=== PATIENT | female | born 1960 | race Caucasian/White ===

== ENCOUNTER → 2018-11-06 18:11 | Outpatient (CLI) | payer BC, SELFPAY ==
[2018-11-06 19:16] LABS: Basophils # 0.1 K/mm3 (0-0.2); Basophils % 0.5 % (0.1-2.0); Eosinophils # 0.2 K/mm3 (0.0-0.4); Eosinophils % 1.9 % (0.1-12.0); Hematocrit 44.6 % (37.0-47.0); Hemoglobin 14.1 g/dL (12.2-16.2); Lymphocytes # 2.3 K/mm3 (0.7-4.5); Lymphocytes % 18.2 % (10-50); Mean Corpuscular HGB Conc 31.8 g/dL (31.8-35.4); Mean Corpuscular Hemoglobin 28.4 pg (27.0-31.2); Mean Corpuscular Volume 89.4 fl (81-99); Mean Platelet Volume 9.5 fl (7.4-10.4); Monocytes # 0.7 K/mm3 (0.1-1.0); Monocytes % 5.4 % (1.7-9.3); Neutrophils # 9.4 K/mm3 (1.8-7.8); Neutrophils % 73.9 % (37.0-80.0); Platelet Count 312 K/mm3 (142-424); Red Blood Count 4.98 M/mm3 (4.20-5.40); White Blood Count 12.7 K/mm3 (4.8-10.8)
[2018-11-06 19:23] LABS: Alanine Aminotransferase 37 U/L (12-78); Albumin Level 3.9 gm/dL (3.4-5.0); Albumin/Globulin Ratio 1.1 (1.1-1.8); Alkaline Phosphatase 109 U/L (46-116); Anion Gap 15.3 mEq/L (5-15); Aspartate Amino Transferase 23 U/L (15-37); Bilirubin,Total 0.3 mg/dL (0.2-1.0); Blood Urea Nitrogen 22 mg/dL (7-18); Calcium 9.8 mg/dL (8.5-10.1); Carbon Dioxide 28 mmol/L (21.0-32.0); Chloride 102 mmol/L (98-107); Chol/HDL Ratio 4.3 (1-3.5); Cholesterol 200 mg/dL (140-200); Creatinine,Serum 0.87 mg/dL (0.55-1.02); Estimated Glomerular Filt Rate 67 ml/min (>60); GFR (African American) 81 ML/MIN (>60); Globulin 3.7 gm/dl (1.3-3.2); Glucose 141 mg/dL (74-106); HDL Cholesterol 47 mg/dL (29-89); LDL Cholesterol 101 mg/dL (0-130); Potassium 4.3 mmoL/L (3.5-5.1); Sodium 141 mmol/L (136-145); T4 (Thyroxine) 7.4 ug/dl (4.7-13.3); Thyroid Stimulating Hormone 2.89 uIU/ml (0.358-3.740); Total Protein,Serum 7.6 gm/dL (6.4-8.2); Triglycerides 262 mg/dL (30-200); VLDL Cholesterol 52 mg/dL (0-40)
[2018-11-06 19:26] LABS: Hemoglobin A1C 6.7 % (0.0-7.0)
[2018-11-08 09:16] LABS: Creatinine, Urine 42.4 mg/dL (Not Estab.); Microalbumin, Urine 4.9 ug/mL (Not Estab.)
[2018-11-10 08:19] LABS: Vitamin D 25 Hydroxy 26.7 ng/mL (30.0-100.0)
== END ==
PROVIDERS: Visit Provider Nurse Practitioner Family
DX: E11.9 Type 2 diabetes mellitus without complications (principal); Z79.84 Long term (current) use of oral hypoglycemic drugs
CPT/HCPCS: 80053; 80061; 82043; 82570; 82652; 83036; 84436; 84443; 85025

== ENCOUNTER → 2018-12-19 13:24 | Outpatient (CLI) | payer BC, SELFPAY ==
--- NOTE | 2018-12-19 13:29 | MR_ITS ---
MR lumbar spine wo con, MR 3-d myelogram/MRCP HISTORY: LBP with LT leg pain, numbness, and tingling. X2-3 months. No trauma. No prior. ITS.REASON: back pain ORDERING PHYSICIAN: Aj Plasencia MD PATIENT AGE: 58 years Comparison: None TECHNIQUE: Standard multiplanar multiecho sequences are performed without contrast. 3-D MIP and myelographic images are also rendered and reviewed FINDINGS: There is normal alignment. The spinal cord ends at the T12-L1 level. T12-L1 is unremarkable. L1-L2: Unremarkable. L2-L3: Unremarkable. L3-L4: Unremarkable. L4-5: Unremarkable. L5-S1: There is 5.5 mm anterolisthesis of L5 on S1 with bulging disc which is slightly eccentric toward the left with left-sided facet and ligamentum flavum hypertrophy with mild left lateral recess and moderate left-sided foraminal narrowing. There is mild right-sided foraminal narrowing. Type I endplate changes are present at this level. IMPRESSION: There is 5.5 mm anterolisthesis of L5 on S1 with bulging disc which is slightly eccentric toward the left with left-sided facet and ligamentum flavum hypertrophy with mild left lateral recess and moderate left-sided foraminal narrowing. There is mild right-sided foraminal narrowing. Type I endplate changes are present at this level. No extruded herniated disc or canal stenosis
== END ==
PROVIDERS: PCP Emergency Medicine; Visit Provider Emergency Medicine
DX: M54.9 Dorsalgia, unspecified (principal)
CPT/HCPCS: 72148; 76376

== ENCOUNTER → 2018-12-30 09:13 | Outpatient (CLI) | payer BC, SELFPAY ==
--- NOTE | 2018-12-30 09:16 | MM_ITS ---
MM Dig screening mamm BI w/CAD CAD Screening COMPARISON: Outside digital mammograms with CAD 11/19/2014 and 08/21/2012 INDICATION: There is no personal or family history of breast cancer TECHNIQUE: Standard CC and MLO images were obtained. R2 CAD reviewed. FINDINGS: The breasts are composed primarily of fat with minimal scattered fiber glandular densities in each breast. There are few benign appearing microcalcifications right breast. There is no suspicious lesion and no suspicious microcalcifications. IMPRESSION: Fibrofatty parenchyma with no suspicious lesion seen BI-RADS Category: 2 Benign Finding(s) RECOMMENDED FOLLOW-UP: 1YR - 1 YEAR FOLLOW-UP (A letter has been sent to the patient regarding results of the study.)
== END ==
PROVIDERS: PCP Emergency Medicine; Visit Provider Emergency Medicine
DX: Z12.31 Encounter for screening mammogram for malignant neoplasm of breast (principal)
CPT/HCPCS: 77067

== ENCOUNTER → 2019-01-05 13:22 | Outpatient (POV) | payer BC, SELFPAY ==
[2019-01-05 13:31] VITALS: BP 106/75; PULSE 83; RESP 18; O2SAT 99
--- NOTE | 2019-01-05 13:47 | HMH.PMCON ---
Assessment and Plan (1) Facet hypertrophy of lumbar region Current visit: No Status: Chronic Category: Medical Code(s): M47.816 - Spondylosis without myelopathy or radiculopathy, lumbar region (2) Bulging lumbar disc Current visit: No Status: Chronic Category: Medical Code(s): M51.26 - Other intervertebral disc displacement, lumbar region (3) Anterolisthesis Current visit: No Status: Chronic Category: Medical Code(s): M43.10 - Spondylolisthesis, site unspecified - Assessment and plan all Dx Assessment and Plan for all problems:: We will set the patient up for an L5-S1 lumbar epidural steroid injection. Patient is going to also begin physical therapy. I will see the patient back after her injection and reassess her symptoms at that time. Patient has been instructed to call the office if she has any issues prior to her next appointment. Dr. Patel has reviewed this note and agrees with this plan of care. This note was dictated using voice recognition software and may contain errors or omissions HPI - Data of Consult Consult date: 01/05/19 Requesting Physician: Mercedes Long APRN Primary Care Provider: Aj Plasencia MD - Consult Narrative Reason for consult: Back pain, left leg pain History of present illness: Ms. Cm is a 58 year old female who presents today for consultation in regards to her low back and left leg pain. Patient has recent MRI showing unremarkable results except at the L5-S1 level. Patient has bulging disc with left-sided facet and ligamentum flavum hypertrophy and left lateral recess and moderate left-sided foraminal narrowing rating to the report. Patient is trying to continue to work. Patient has an appointment with Dr. Donaldson next Saturday. Patient is currently on anti-inflammatories and gabapentin. Patient has not been to physical therapy. She rates her pain today a 5 out of 10. She is notably uncomfortable. CC: Mercedes Long APRN [facility] History I have reviewed the patient's past medical history: Yes Medical History: Reports:: Depression, Diabetes Mellitus Type 2, Hyperlipidemia, Hypertension *Have you ever received a pneumonia vaccine?: No *Have you received a flu vaccine this season?: Yes Other Medical History: Reports: Hypothyroidism Other Surgeries: Yes: BSO, Cholecystectomy, Tubal Ligation Amputation: No Fractures: No - *Social History Smoking Status: Never smoker Alcohol Intake: never Substance Use Type: denies use *Occupational Status:: employed Housing: house *Travel in the last 8 weeks: None - Psychiatric History Expresses thoughts of harming self/others: None Suicide Plan Description: No Plan Pschychiatric History:: Reports:: Depression Family Hx:: Stroke, Heart Attack, Diabetes Review of Systems - Review of Systems ROS General: no recent weight change, no fever, no sleep disturbances Respiratory: no cough, no shortness of air, no recurring pulmonary infections Cardiovascular/Peripheral Vascular: No chest pain, No palpitations, no edema, no shortness of breath. Gastrointestinal: no incontinence, normal bowel movements reported Genitourinary: no incontinence Musculoskeletal: Back pain, left leg pain Psychiatric: normal mood/ affect Neurological: [denies weakness in extremities], [denies balance issues] Meds Home Medications Medication Instructions Recorded Confirmed Type aspirin 81 mg tablet,delayed 81 mg PO DAILY 10/01/18 12/24/18 History release meloxicam 15 mg tablet 15 mg PO DAILY 10/01/18 12/24/18 History polyethylene glycol 3350 17 gram 17 g PO DAILY 10/01/18 12/24/18 History oral powder packet rosuvastatin 20 mg tablet 20 mg PO DAILY 10/01/18 12/24/18 History sertraline 50 mg tablet 50 mg PO DAILY 10/01/18 12/24/18 History sitagliptin 100 mg tablet 100 mg PO DAILY 10/01/18 12/24/18 History tolterodine 2 mg tablet 2 mg PO BID #180 tab 12/02/18 12/24/18 Rx glipizide 10 mg tablet 20 mg PO BID #360 tab
--- NOTE | 2019-01-05 13:51 | P.CONS_ITS ---
Assessment and Plan (1) Facet hypertrophy of lumbar region Current visit: No Status: Chronic Category: Medical Code(s): M47.816 - Spondylosis without myelopathy or radiculopathy, lumbar region (2) Bulging lumbar disc Current visit: No Status: Chronic Category: Medical Code(s): M51.26 - Other intervertebral disc displacement, lumbar region (3) Anterolisthesis Current visit: No Status: Chronic Category: Medical Code(s): M43.10 - Spondylolisthesis, site unspecified - Assessment and plan all Dx Assessment and Plan for all problems:: We will set the patient up for an L5-S1 lumbar epidural steroid injection. Patient is going to also begin physical therapy. I will see the patient back after her injection and reassess her symptoms at that time. Patient has been instructed to call the office if she has any issues prior to her next appointment. Dr. Patel has reviewed this note and agrees with this plan of care. This note was dictated using voice recognition software and may contain errors or omissions HPI - Data of Consult Consult date: 01/05/19 Requesting Physician: Mercedes Long APRN Primary Care Provider: Aj Plasencia MD - Consult Narrative Reason for consult: Back pain, left leg pain History of present illness: Ms. Cm is a 58 year old female who presents today for consultation in regards to her low back and left leg pain. Patient has recent MRI showing unremarkable results except at the L5-S1 level. Patient has bulging disc with left-sided facet and ligamentum flavum hypertrophy and left lateral recess and moderate left-sided foraminal narrowing rating to the report. Patient is trying to continue to work. Patient has an appointment with Dr. Donaldson next Saturday. Patient is currently on anti-inflammatories and gabapentin. Patient has not been to physical therapy. She rates her pain today a 5 out of 10. She is notably uncomfortable. CC: Mercedes Long APRN [facility] History I have reviewed the patient's past medical history: Yes Medical History: Reports:: Depression, Diabetes Mellitus Type 2, Hyperlipidemia, Hypertension *Have you ever received a pneumonia vaccine?: No *Have you received a flu vaccine this season?: Yes Other Medical History: Reports: Hypothyroidism Other Surgeries: Yes: BSO, Cholecystectomy, Tubal Ligation Amputation: No Fractures: No - *Social History Smoking Status: Never smoker Alcohol Intake: never Substance Use Type: denies use *Occupational Status:: employed Housing: house *Travel in the last 8 weeks: None - Psychiatric History Expresses thoughts of harming self/others: None Suicide Plan Description: No Plan Pschychiatric History:: Reports:: Depression Family Hx:: Stroke, Heart Attack, Diabetes Review of Systems - Review of Systems ROS General: no recent weight change, no fever, no sleep disturbances Respiratory: no cough, no shortness of air, no recurring pulmonary infections Cardiovascular/Peripheral Vascular: No chest pain, No palpitations, no edema, no shortness of breath. Gastrointestinal: no incontinence, normal bowel movements reported Genitourinary: no incontinence Musculoskeletal: Back pain, left leg pain Psychiatric: normal mood/ affect Neurological: [denies weakness in extremities], [denies balance issues] Meds Home Medications Medication Instructions Recorded Confirmed Type aspirin 81 mg tablet,delayed 81 mg PO DAILY 10/01/18 12/24/18 History release
== END ==
PROVIDERS: PCP Emergency Medicine; Visit Provider Clinical Nurse Specialist Family Health
DX: M47.816 Spondylosis without myelopathy or radiculopathy, lumbar region (principal); M51.26 Other intervertebral disc displacement, lumbar region; M43.10 Spondylolisthesis, site unspecified
CPT/HCPCS: 99202

== ENCOUNTER 2019-01-09 11:10 | Day surgery (SDC) | payer BC, SELFPAY ==
[2019-01-09 12:06] VITALS: BP 156/79; PULSE 77; RESP 18; O2SAT 97; BMI 39.0
[2019-01-09 12:31] VITALS: BP 146/98; PULSE 78; RESP 18
[2019-01-09 12:32] VITALS: BP 145/87; PULSE 79; RESP 18; O2SAT 98
[2019-01-09 12:35] VITALS: BP 174/78; PULSE 74; RESP 18; O2SAT 97
--- NOTE | 2019-01-09 12:36 | HMH.PMPROC ---
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 Donaldosn this Saturday. She has increasing pain in her back radiating down her left leg. We will do a lumbar epidural steroid injection to see if this will help with her pain symptoms. Procedure Details:: Lumbar epidural steroid injection under fluoroscopy Informed consent was obtained and the risk and benefits of the procedure was explained to the patient. The patient was taken to the procedure room. The patient was placed prone on the procedure table. The patient was prepped and draped in sterile fashion. C-arm fluoroscopy was used to view the lumbar spine. Skin and subcutaneous tissues were anesthetized using lidocaine. I placed an 18-gauge epidural needle and advanced into the L4-L5 interspace using fluoroscopic guidance and [id number] to air. After confirmation of needle placement in the epidural space with dye I injected 2 mL of lidocaine 1.5% with Depo-Medrol 80 mg. Patient tolerated the procedure well with no complications. Plan and Disposition:: We will follow-up with her in 2 weeks. Will reevaluate her symptoms at that time and follow-up on Dr. Donaldson's recommendation.
== END 2019-01-09 12:35 | disposition home or self-care (01) ==
LOC: SC.PAINP 11:14
PROVIDERS: PCP Emergency Medicine; Visit Provider Anesthesiology
DX: M51.16 Intervertebral disc disorders with radiculopathy, lumbar region (principal)
CPT/HCPCS: 62323; J1040; Q9966

== ENCOUNTER 2019-02-04 16:00 | Outpatient (RCR) | payer BC, SELFPAY | END 2019-02-04 16:05 | disposition home or self-care (01) | LOC: PT 16:00 | PROVIDERS: Visit Provider Clinical Nurse Specialist Family Health | DX: M54.5 Low back pain (principal) | CPT/HCPCS: 97010; 97014; 97110; 97163; G0283 ==

== ENCOUNTER → 2019-02-09 13:37 | Outpatient (POV) | payer BC, SELFPAY ==
[2019-02-09 13:52] VITALS: BP 124/55; PULSE 100; RESP 18; O2SAT 98; BMI 40.1
--- NOTE | 2019-02-09 13:56 | P.CONS_ITS ---
[facility] Pain Management SOAP Note Subjective:: Patient is a pleasant 58-year-old white female who we are treating for low back pain. She is following up after her first lumbar epidural steroid injection. She denies any pain today. She is 100% relief of her symptomology. She is doing well and much more functional. She like to follow-up on an as-needed basis. ROS General: no recent weight change, no fever, no sleep disturbances Respiratory: no cough, no shortness of air, no recurring pulmonary infections Cardiovascular/Peripheral Vascular: No chest pain, No palpitations, no edema, no shortness of breath. Gastrointestinal: no incontinence, normal bowel movements reported Genitourinary: no incontinence Musculoskeletal: Back pain, leg pain Psychiatric: normal mood/ affect Neurological: [denies weakness in extremities], [denies balance issues] Objective:: Physical Exam General: Alert and oriented x3, no acute distress, pleasant and cooperative, [on room air] Lungs: Resps E/U, Symmetrical chest expansion, Eyes: PERRL Musculoskeletal: Flexion and extension of lumbar spine somewhat guarded se condary to pain, deep tendon reflexes normal, strength in upper and lower extremities [5/5], slightly antalgic gait noted Neurological: speech clear, director of enrollment equal, no gross sensory deficits Assessment:: Degenerative disc disease lumbar spine with lumbar radiculopathy symptoms with Plan:: We will see the patient back on an as needed basis. Patient has been instructed to call the office if she has any issues. Overall patient is doing well. Dr. Patel has reviewed this note and agrees with this plan of care. This note was dictated using voice recognition software and may contain errors or omissions
== END ==
PROVIDERS: PCP Emergency Medicine; Visit Provider Clinical Nurse Specialist Family Health
DX: M51.16 Intervertebral disc disorders with radiculopathy, lumbar region (principal)
CPT/HCPCS: 99212

== ENCOUNTER → 2019-05-25 11:10 | Outpatient (POV) | payer BC, SELFPAY ==
[2019-05-25 11:30] VITALS: BP 183/75; PULSE 76; RESP 18; O2SAT 94; BMI 39.9
--- NOTE | 2019-05-26 08:52 | P.CONS_ITS ---
[facility] Pain Management SOAP Note Subjective:: Patient is a very pleasant 58-year-old white female who we are treating for low back pain. Patient had an epidural injection in which she got 100% relief of her symptomology for over 3 months. Patient's pain is beginning to return. She rates it a 5 out of 10. She would like to move forward with a repeat L4-L5 lumbar epidural steroid injection. She does have radiation into her legs. ROS General: no recent weight change, no fever, no sleep disturbances Respiratory: no cough, no shortness of air, no recurring pulmonary infections Cardiovascular/Peripheral Vascular: No chest pain, No palpitations, no edema, no shortness of breath. Gastrointestinal: no incontinence, normal bowel movements reported Genitourinary: no incontinence Musculoskeletal: Back pain, leg pain Psychiatric: normal mood/ affect Neurological: [denies weakness in extremities], [denies balance issues] Objective:: Physical Exam General: Alert and oriented x3, no acute distress, pleasant and cooperative, [on room air] Lungs: Resps E/U, Symmetrical chest expansion, Eyes: PERRL Musculoskeletal: Flexion and extension of bar spine somewhat guarded secondary to pain, deep tendon reflexes normal, strength in upper and lower extremities [5/5], lightly antalgic gait noted, positive straight leg raise test bilaterally at 30 degrees Neurological: speech clear, geneticist equal, no gross sensory deficits Assessment:: Degenerative disc disease lumbar spine with lumbar radiculopathy Plan:: Given the efficacy of the injections in the past we will move forward with an L4-L5 lumbar epidural steroid injection. Patient's been instructed to call the office if she has any issues prior to her next appointment. She is not on any anticoagulation therapy she has had pain for over 6 months. She has been continuing her home stretching program. Dr. Patel has reviewed this note and agrees with this plan of care. This note was dictated using voice recognition software and may contain errors or omissions [facility] History I have reviewed the patient's past medical history: Yes Medical History: Reports:: Depression, Diabetes Mellitus Type 2, Hyperlipidemia, Hypertension Denies:: Seizures *Have you ever received a pneumonia vaccine?: No *Have you received a flu vaccine this season?: No Other Medical History: Reports: Hypothyroidism Other Surgeries: Yes: BSO, Cholecystectomy, Tubal Ligation Amputation: No Fractures: No - *Social History Smoking Status: Never smoker Alcohol Intake: never Substance Use Type: denies use *Occupational Status:: other Housing: house *Travel in the last 8 weeks: None - Psychiatric History Pschychiatric History:: Reports:: Depression Family Hx:: Stroke, Heart Attack, Diabetes
== END ==
PROVIDERS: PCP Emergency Medicine; Visit Provider Clinical Nurse Specialist Family Health
DX: M51.16 Intervertebral disc disorders with radiculopathy, lumbar region (principal)
CPT/HCPCS: 99212

== ENCOUNTER → 2019-06-09 15:59 | Outpatient (CLI) | payer BC, SELFPAY ==
--- NOTE | 2019-06-09 16:05 | XR_ITS ---
PROCEDURE: XR CHEST 2V CLINICAL HISTORY: cough Cough with difficulty breathing COMPARISON: Ribs R from 01/26/2019 FINDINGS: The cardiomediastinal silhouette and pulmonary vascularity are within normal limits. There is patchy density in the right infrahilar region and may be due to an area of infiltrate. There is a nodule in the right middle lobe which measures 10 mm. This may reflect a calcified granuloma. Stability may be confirmed with follow-up. No acute bony abnormalities. IMPRESSION: Patchy infiltrate in the right perihilar region. Right middle lobe nodule which may be due to a granuloma and may be confirmed with follow-up Dictated by: Max Rocha MD 06/09/2019 16:31 Electronically signed by Max Rocha MD in [place] 06/09/2019 16:31
== END ==
PROVIDERS: PCP Nurse Practitioner Family; Visit Provider Nurse Practitioner Family
DX: R05 Cough (principal); R06.2 Wheezing; R09.89 Other specified symptoms and signs involving the circulatory and respiratory systems
CPT/HCPCS: 71046

== ENCOUNTER → 2019-06-23 14:16 | Outpatient (POV) | payer BC, SELFPAY ==
--- NOTE | 2019-06-23 14:48 | HMH.PAINSOAP ---
[facility] Pain Management SOAP Note Subjective:: Patient is a pleasant 59-year-old white female who presents today for follow-up. Patient is having extreme pain rating it a 10 out of 10. She is had epidural steroid injections in the past and she is getting significant relief however due to conflicting schedules we had to move her injection back. Patient was on gabapentin however she stopped taking it. Stating that it causes bowel issues for her. ROS General: no recent weight change, no fever, no sleep disturbances Respiratory: no cough, no shortness of air, no recurring pulmonary infections Cardiovascular/Peripheral Vascular: No chest pain, No palpitations, no edema, no shortness of breath. Gastrointestinal: no new onset incontinence, normal bowel movements reported Genitourinary: no new onset incontinence Musculoskeletal: [Back pain, leg pain] Psychiatric: normal mood/ affect Neurological: [denies new onset weakness in extremities], [denies new onset balance issues] Objective:: Physical Exam General: Alert and oriented x3, no acute distress, pleasant and cooperative, [on room air] Lungs: Resps E/U, Symmetrical chest expansion, Eyes: PERRL Musculoskeletal: Flexion and extension of lumbar spine somewhat guarded secondary to pain, deep tendon reflexes normal, strength in upper and lower extremities [5/5], [abnormal gait noted] Neurological: speech clear, paralegal assistant equal, no gross sensory deficits Assessment:: Degenerative disc disease lumbar spine with lumbar radiculopathy Plan:: We will give the patient prednisone 20 mg 1 p.o. twice daily for 5 days to help control her pain we will also start Lyrica 75 mg 1 p.o. nightly. We will see the patient back on the day of her injection. She is been instructed to call the office if she does not get pain relief prior to this. Dr. Patel has reviewed this note and agrees with this plan of care. This note was dictated using voice recognition software and may contain errors or omissions [facility] History I have reviewed the patient's past medical history: Yes Medical History: Reports:: Depression, Diabetes Mellitus Type 2, Hyperlipidemia, Hypertension Denies:: Seizures *Have you ever received a pneumonia vaccine?: No *Have you received a flu vaccine this season?: No Other Medical History: Reports: Hypothyroidism Other Surgeries: Yes: BSO, Cholecystectomy, Tubal Ligation Amputation: No Fractures: No - *Social History Smoking Status: Never smoker Alcohol Intake: never Substance Use Type: denies use *Occupational Status:: other Housing: house *Travel in the last 8 weeks: None - Psychiatric History Pschychiatric History:: Reports:: Depression Family Hx:: Stroke, Heart Attack, Diabetes
--- NOTE | 2019-06-23 15:00 | P.CONS_ITS ---
[facility] Pain Management SOAP Note Subjective:: Patient is a pleasant 59-year-old white female who presents today for follow-up. Patient is having extreme pain rating it a 10 out of 10. She is had epidural steroid injections in the past and she is getting significant relief however due to conflicting schedules we had to move her injection back. Patient was on gabapentin however she stopped taking it. Stating that it causes bowel issues for her. ROS General: no recent weight change, no fever, no sleep disturbances Respiratory: no cough, no shortness of air, no recurring pulmonary infections Cardiovascular/Peripheral Vascular: No chest pain, No palpitations, no edema, no shortness of breath. Gastrointestinal: no new onset incontinence, normal bowel movements reported Genitourinary: no new onset incontinence Musculoskeletal: [Back pain, leg pain] Psychiatric: normal mood/ affect Neurological: [denies new onset weakness in extremities], [denies new onset balance issues] Objective:: Physical Exam General: Alert and oriented x3, no acute distress, pleasant and cooperative, [on room air] Lungs: Resps E/U, Symmetrical chest expansion, Eyes: PERRL Musculoskeletal: Flexion and extension of lumbar spine somewhat guarded secondary to pain, deep tendon reflexes normal, strength in upper and lower extremities [5/5], [abnormal gait noted] Neurological: speech clear, certifed refrigeration operator equal, no gross sensory deficits Assessment:: Degenerative disc disease lumbar spine with lumbar radiculopathy Plan:: We will give the patient prednisone 20 mg 1 p.o. twice daily for 5 days to help control her pain we will also start Lyrica 75 mg 1 p.o. nightly. We will see the patient back on the day of her injection. She is been instructed to call the office if she does not get pain relief prior to this. Dr. Patel has reviewed this note and agrees with this plan of care. This note was dictated using voice recognition software and may contain errors or omissions [facility] History I have reviewed the patient's past medical history: Yes Medical History: Reports:: Depression, Diabetes Mellitus Type 2, Hyperlipidemia, Hypertension Denies:: Seizures *Have you ever received a pneumonia vaccine?: No *Have you received a flu vaccine this season?: No Other Medical History: Reports: Hypothyroidism Other Surgeries: Yes: BSO, Cholecystectomy, Tubal Ligation Amputation: No Fractures: No - *Social History Smoking Status: Never smoker Alcohol Intake: never Substance Use Type: denies use *Occupational Status:: other Housing: house *Travel in the last 8 weeks: None - Psychiatric History Pschychiatric History:: Reports:: Depression Family Hx:: Stroke, Heart Attack, Diabetes
== END ==
PROVIDERS: PCP Emergency Medicine; Visit Provider Clinical Nurse Specialist Family Health
DX: M51.16 Intervertebral disc disorders with radiculopathy, lumbar region (principal)
CPT/HCPCS: 99212

== ENCOUNTER → 2019-07-21 09:52 | Outpatient (POV) | payer BC, SELFPAY ==
[2019-07-21 10:05] VITALS: BP 143/65; PULSE 86; RESP 18; O2SAT 98; BMI 38.3
--- NOTE | 2019-07-21 10:31 | HMH.PAINSOAP ---
[facility] Pain Management SOAP Note Subjective:: Patient is a pleasant 59-year-old white female who presents today for follow-up. She is being treated for low back pain with lumbar radiculopathy symptoms. Patient has undergone her second epidural steroid injection at L4-L5. Patient says she got approximately 4 months of relief, up to 80%, with her first epidural steroid injection. With her second injection, however, patient says she only got approximately a week of relief. She says that during the week of relief, it was approximately 80 to 85%. 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 She is concerned that she is going to lose her job because she is unable to stand. She says that she has tried multiple conservative therapies such as ice and heat therapy. She is also tried gabapentin, however, developed severe constipation with this. She is continuing with a home stretching program. She says she has undergone physical therapy for greater than 6 weeks. Patient would like to continue with one more epidural steroid injection. In the event that it does not work, the patient would like to discuss other possible options to provide her long-term relief. She rates her pain a 3 out of 10 when sitting and a 9 out of 10 after 10 minutes of standing. Review of Systems General: No recent weight changes, no fever, no sleep disturbances Respiratory: No cough, no shortness of air, no recurring pulmonary infections Cardiovascular/peripheral vascular: No chest pain, no palpitations, no edema, no shortness of breath Gastrointestinal: No new onset incontinence, normal bowel movements reported Genitourinary: No new onset incontinence Musculoskeletal: Back pain, left leg pain with numbness and tingling to left foot Psychiatric: Normal mood/affect Neurological: [Denies weakness in extremities], [denies balance issues] Objective:: Physical exam General: Alert and oriented x3, no acute distress, pleasant and cooperative, [on room air] Lungs: Respirations even and unlabored, symmetrical chest expansion Eyes: PERRL Musculoskeletal: Flexion and extension of lumbar spine somewhat guarded secondary to pain, deep tendon reflexes normal, strength in upper and lower extremities [5/5], [abnormal gait noted] Neurological: Speech clear, fish farmer equal, no gross sensory deficit Assessment:: Degenerative disc disease lumbar spine with lumbar radiculopathy Plan:: We will schedule the patient for a lumbar epidural steroid injection at L4-L5. She is not on any anticoagulation therapy. She will continue with anti-inflammatories and a home stretching program. We will also schedule the patient for a psychological evaluation for possible spinal cord stimulation. If the epidural does not give her adequate relief, I do think the patient would benefit from a stimulator. We will also order the patient Cymbalta 20 mg 1 tablet p.o. daily. We will see the patient back in clinic following her injection to reassess her symptoms. She has been instructed to contact the clinic if she has any concerns before next appointment. Dr. Patel has reviewed this note and agrees with this plan of care. This note was dictated using voice recognition software and make contain errors or omissions. [facility] History I have reviewed the patient's past medical history: Yes Medical History: Reports:: Depression, Diabetes Mellitus Type 2, Hyperlipidemia, Hypertension, Seizures Denies:: Diabetes Mellitus Type 1 *Have you ever received a pneumonia vaccine?: Yes *Have you received a flu vaccine this season?: Yes Other Medical History: Reports: Hypothyroidism Other Surgeries: Yes: BSO, Cholecystectomy, Tubal Ligation Amputation: No Fractures: No - *Social History Smoking Status: Never smoker Alcohol Intake: never Substance Use Type: denies use *Occupational Status:: other Housing: house *Travel in the last 8 weeks: None - Psychiatric Hist
--- NOTE | 2019-07-21 10:40 | P.CONS_ITS ---
[facility] Pain Management SOAP Note Subjective:: Patient is a pleasant 59-year-old white female who presents today for follow-up. She is being treated for low back pain with lumbar radiculopathy symptoms. Patient has undergone her second epidural steroid injection at L4-L5. Patient says she got approximately 4 months of relief, up to 80%, with her first epidural steroid injection. With her second injection, however, patient says she only got approximately a week of relief. She says that during the week of relief, it was approximately 80 to 85%. 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 She is concerned that she is going to lose her job because she is unable to stand. She says that she has tried multiple conservative therapies such as ice and heat therapy. She is also tried gabapentin, however, developed severe constipation with this. She is continuing with a home stretching program. She says she has undergone physical therapy for greater than 6 weeks. Patient would like to continue with one more epidural steroid injection. In the event that it does not work, the dayo fleming would like to discuss other possible options to provide her long-term relief. She rates her pain a 3 out of 10 when sitting and a 9 out of 10 after 10 minutes of standing. Review of Systems General: No recent weight changes, no fever, no sleep disturbances Respiratory: No cough, no shortness of air, no recurring pulmonary infections Cardiovascular/peripheral vascular: No chest pain, no palpitations, no edema, no shortness of breath Gastrointestinal: No new onset incontinence, normal bowel movements reported Genitourinary: No new onset incontinence Musculoskeletal: Back pain, left leg pain with numbness and tingling to left foot Psychiatric: Normal mood/affect Neurological: [Denies weakness in extremities], [denies balance issues] Objective:: Physical exam General: Alert and oriented x3, no acute distress, pleasant and cooperative, [on room air] Lungs: Respirations even and unlabored, symmetrical chest expansion Eyes: PERRL Musculoskeletal: Flexion and extension of lumbar spine somewhat guarded secondary to pain, deep tendon reflexes normal, strength in upper and lower extremities [5/5], [abnormal gait noted] Neurological: Speech clear, 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 She is not on any anticoagulation therapy. She will continue with anti- inflammatories and a home stretching program. We will also schedule the patient for a psychological evaluation for possible spinal cord stimulation. If the epidural does not give her adequate relief, I do think the patient would benefit from a stimulator. We will also order the patient Cymbalta 20 mg 1 tablet p.o. daily. We will see the patient back in clinic following her injection to reassess her symptoms. She has been instructed to contact the clinic if she has any concerns before next appointment. Dr. Patel has reviewed this note and agrees with this plan of care. This note was dictated using voice recognition software and make contain errors or omissions. [facility] History I have reviewed the patient's past medical history: Yes Medical History: Reports:: Depression, Diabetes Mellitus Type 2, Hyperlipidemia, Hypertension, Seizures Denies:: Diabetes Mellitus Type 1 *Have you ever received a pneumonia vaccine?: Yes *Have you received a flu vaccine this season?: Yes Other Medical History: Reports: Hypothyroidism
== END ==
PROVIDERS: PCP Emergency Medicine; Visit Provider Clinical Nurse Specialist Family Health
DX: M51.16 Intervertebral disc disorders with radiculopathy, lumbar region (principal)
CPT/HCPCS: 99212

== ENCOUNTER → 2019-08-24 14:02 | Outpatient (POV) | payer BC, SELFPAY ==
[2019-08-24 14:14] VITALS: BP 116/43; PULSE 104; RESP 18; O2SAT 98; BMI 41.5
--- NOTE | 2019-08-24 14:29 | HMH.PAINSOAP ---
[facility] Pain Management SOAP Note Subjective:: Patient is a pleasant 59-year-old white female who presents today for follow-up. Patient had her third epidural steroid injection. Her pain is somewhat better however she still having difficulty with standing and walking. Patient rates her pain a 6 out of 10. She got degenerative disc disease lumbar spine with lumbar radiculopathy symptoms along with CRPS type II bilateral lower extremity she is autonomic changes in her bilateral lower extremities including color changes, swelling, temperature changes. She is tried and failed physical therapy, anti-inflammatories, medication. She is continuing to try to work as much as she can. She is having difficulty with activities of daily life. ROS General: no recent weight change, no fever, no sleep disturbances Respiratory: no cough, no shortness of air, no recurring pulmonary infections Cardiovascular/Peripheral Vascular: No chest pain, No palpitations, no edema, no shortness of breath. Gastrointestinal: no new onset incontinence, normal bowel movements reported Genitourinary: no new onset incontinence Musculoskeletal: Back pain, leg pain Psychiatric: normal mood/ affect Neurological: [denies new onset weakness in extremities], [denies new onset balance issues] Objective:: Physical Exam General: Alert and oriented x3, no acute distress, pleasant and cooperative, [on room air] Lungs: Resps E/U, Symmetrical chest expansion, Eyes: PERRL Musculoskeletal: Flexion and extension of lumbar spine somewhat guarded secondary to pain, deep tendon reflexes normal, strength in upper and lower extremities [5/5], [abnormal gait noted] Neurological: speech clear, career guidance technician equal, no gross sensory deficits Assessment:: Degenerative disc disease lumbar spine with lumbar radiculopathy, CRPS type II Plan:: Patient is scheduled for psychological evaluation for neurostimulator. I will follow-up with the patient after this reassess her symptoms at that time she is been instructed to call the office if she has any issues prior to her next appointment. Dr. Patel has reviewed this note and agrees with this plan of care. This note was dictated using voice recognition software and may contain errors or omissions [facility] History I have reviewed the patient's past medical history: Yes Medical History: Reports:: Depression, Diabetes Mellitus Type 2, Hyperlipidemia, Hypertension, Seizures Denies:: Diabetes Mellitus Type 1 *Have you ever received a pneumonia vaccine?: Yes *Have you received a flu vaccine this season?: Yes Other Medical History: Reports: Hypothyroidism Other Surgeries: Yes: BSO, Cholecystectomy, Tubal Ligation Amputation: No Fractures: No - *Social History Smoking Status: Never smoker Alcohol Intake: never Substance Use Type: denies use *Occupational Status:: other Housing: house *Travel in the last 8 weeks: None - Psychiatric History Pschychiatric History:: Reports:: Depression Family Hx:: Stroke, Heart Attack, Diabetes
== END ==
PROVIDERS: PCP Emergency Medicine; Visit Provider Clinical Nurse Specialist Family Health
DX: M51.16 Intervertebral disc disorders with radiculopathy, lumbar region (principal)
CPT/HCPCS: 99212

== ENCOUNTER → 2019-09-15 11:07 | Outpatient (POV) | payer BC, SELFPAY ==
[2019-09-15 11:45] VITALS: BP 152/63; PULSE 91; RESP 18; O2SAT 98; BMI 41.8
--- NOTE | 2019-09-15 12:20 | HMH.PAINSOAP ---
[facility] Pain Management SOAP Note Subjective:: Patient is a very pleasant 59-year-old white female who presents today for follow-up. Patient is being treated for degenerative disc disease lumbar spine with lumbar radiculopathy and CRPS type II bilateral lower extremities. Patient has autonomic changes in her bilateral lower extremities including color changes, swelling, temperature changes. She is tried and failed physical therapy, anti-inflammatories, medication. She is continuing to try to work as much as she can. She is having difficulty with activities of daily life. Patient is had injective therapy with no long-term relief. Her goal and our goal is to have her back in physical therapy post neurostimulator implant. So that she can maintain optimal function ROS General: no recent weight change, no fever, no sleep disturbances Respiratory: no cough, no shortness of air, no recurring pulmonary infections Cardiovascular/Peripheral Vascular: No chest pain, No palpitations, no edema, no shortness of breath. Gastrointestinal: no new onset incontinence, normal bowel movements reported Genitourinary: no new onset incontinence Musculoskeletal: Back pain, leg pain Psychiatric: normal mood/ affect Neurological: [denies new onset weakness in extremities], [denies new onset balance issues] Objective:: Physical Exam General: Alert and oriented x3, no acute distress, pleasant and cooperative, [on room air] Lungs: Resps E/U, Symmetrical chest expansion, Eyes: PERRL Musculoskeletal: Flexion and extension of lumbar spine somewhat guarded secondary to pain, deep tendon reflexes normal, strength in upper and lower extremities [5/5], [abnormal gait noted] Skin: Notable swelling bilateral lower extremities Neurological: speech clear, 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 Patient is not on any anticoagulation therapy. She is an appropriate psychological evaluation. I will follow-up with her after her trial reassess her symptoms at that time she has been instructed to call the office if she has any issues prior to her next appointment. Dr. Patel has reviewed this note and agrees with this plan of care. This note was dictated using voice recognition software and may contain errors or omissions [facility] History I have reviewed the patient's past medical history: Yes Medical History: Reports:: Depression, Diabetes Mellitus Type 2, Hyperlipidemia, Hypertension, Seizures Denies:: Diabetes Mellitus Type 1 *Have you ever received a pneumonia vaccine?: Yes *Have you received a flu vaccine this season?: Yes Other Medical History: Reports: Hypothyroidism Other Surgeries: Yes: BSO, Cholecystectomy, Tubal Ligation Amputation: No Fractures: No - *Social History Smoking Status: Never smoker Alcohol Intake: never Substance Use Type: denies use *Occupational Status:: other Housing: house *Travel in the last 8 weeks: None - Psychiatric History Pschychiatric History:: Reports:: Depression Family Hx:: Stroke, Heart Attack, Diabetes
== END ==
PROVIDERS: PCP Emergency Medicine; Visit Provider Clinical Nurse Specialist Family Health
DX: M51.16 Intervertebral disc disorders with radiculopathy, lumbar region (principal); G57.73 Causalgia of bilateral lower limbs; F32.9 Major depressive disorder, single episode, unspecified; E11.9 Type 2 diabetes mellitus without complications; E78.5 Hyperlipidemia, unspecified; I10 Essential (primary) hypertension; Z86.69 Personal history of other diseases of the nervous system and sense organs; E03.9 Hypothyroidism, unspecified
CPT/HCPCS: 99212

== ENCOUNTER → 2019-09-29 11:48 | Outpatient (POV) | payer BC, SELFPAY ==
[2019-09-29 12:05] VITALS: BP 142/53; PULSE 94; RESP 18; O2SAT 99; BMI 41.8
--- NOTE | 2019-09-29 12:32 | P.PCN_ITS ---
- Procedure Date: 09/29/19 Time: 12:32 Anesthesiologist:: Mercedes Long APRN Complications:: None Pre-procedure Diagnosis:: Degenerative disc disease lumbar spine with lumbar radiculopathy symptoms CRPS type II of the lower extremities Post-procedure Diagnosis:: Same Indications for Procedure:: Patient is a pleasant 59-year-old white female who we are treating for low back pain with lumbar radiculopathy symptoms and CRPS type II symptoms of her lower extremities. She is failed all conservative therapy including oral medications, physical therapy and injections. She is not a surgical candidate she has had a successful neuropsychological evaluation. She presents today for spinal cord stimulator trial lead removal. Patient got over 90% relief of her symptomology she was able to go to work and complete a full shift without any issue she rates her pain today is 0 out of 10. This is a very successful trial. Physical Exam General: Alert and oriented x3, no acute distress, pleasant and cooperative, [on room air] Lungs: Resps E/U, Symmetrical chest expansion, Eyes: PERRL Musculoskeletal:deep tendon reflexes normal, strength in upper and lower extremities [5/5], normal gait noted Neurological: speech clear, vrt mechanic equal, no gross sensory deficits Procedure Details:: after informed consent was obtained the risk and benefits of the procedure were explained to the patient. Patient's vital signs were monitored with noninvasive blood pressure cuff and pulse oximeter. Patient's tape was removed on her back. The area in which her epidural leads entered was examined to ensure no redness or draining. Patient leads were then removed in sterile fashion. Patient then had Band-Aids placed over the puncture sites. Patient tolerated the procedure well. Plan and Disposition:: We will plan on a permanent implant given the efficacy of the trial. She will be implanted with a [employer] rechargeable system. She is been instructed to call the office if she has any issues prior to her next appointment. Leads were placed T9-T10 and another one at T8-T9 vertebral bodies. Patient is not on any anticoagulation therapy. And Dr. Patel has reviewed this note and agrees with this plan of care. This note was dictated using voice recognition software and may contain errors or omissions
== END ==
PROVIDERS: PCP Emergency Medicine; Visit Provider Clinical Nurse Specialist Family Health
DX: M51.16 Intervertebral disc disorders with radiculopathy, lumbar region (principal); G57.73 Causalgia of bilateral lower limbs
CPT/HCPCS: 99212

== ENCOUNTER → 2019-10-15 10:27 | Outpatient (POV) | payer BC, SELFPAY ==
[2019-10-15 10:42] VITALS: BP 162/77; PULSE 105; RESP 18; O2SAT 98; BMI 41.8
--- NOTE | 2019-10-15 11:00 | HMH.PAINSOAP ---
[facility] Pain Management SOAP Note Subjective:: Patient is a pleasant 59-year-old white female who presents today for follow-up after spinal cord stimulator implant. She is being treated for degenerative disc disease lumbar spine with lumbar radiculopathy symptoms as well as CRPS type II of her lower extremities. Patient says she is doing very well following her implant. She says her pain is a 0 out of 10. Patient says that she is not having any incisional pain or any complications associated with pain since having the stimulator placed. She says that she wishes she had the stimulator placed earlier. She did not realize how well it would work for her pain. Patient says that she is not having any numbness or tingling in her bilateral lower extremities. She says that if she does turn the stimulator up, however, she does feel stimulation in her right leg. She says that if it continues she will contact the termite control service representative. At this time, she does not want to change any programming. Review of Systems General: No recent weight changes, no fever, no sleep disturbances Respiratory: No cough, no shortness of air, no recurring pulmonary infections Cardiovascular/peripheral vascular: No chest pain, no palpitations, no edema, no shortness of breath Gastrointestinal: No new onset incontinence, normal bowel movements reported Genitourinary: No new onset incontinence Musculoskeletal: Low back pain, left leg pain Psychiatric: Normal mood/affect Neurological: [Denies weakness in extremities], [denies balance issues] Objective:: Physical exam General: Alert and oriented x3, no acute distress, pleasant and cooperative, [on room air] Lungs: Respirations even and unlabored, symmetrical chest expansion Eyes: PERRL Musculoskeletal: Flexion and extension of lumbar spine somewhat guarded secondary to pain, deep tendon reflexes normal, strength in upper and lower extremities [5/5], [abnormal gait noted] Neurological: Speech clear, 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 She will follow-up with us in 2 weeks to reassess her symptoms and remove her sutures. Her sutures are intact, with no redness, drainage, or edema noted to her incision site. Patient has been instructed to contact clinic if she has any concerns before her next appointment. Dr. Patel has reviewed this note and agrees with this plan of care. This note was dictated using voice recognition software and make contain errors or omissions. [facility] History I have reviewed the patient's past medical history: Yes Medical History: Reports:: Depression, Diabetes Mellitus Type 2, Hyperlipidemia, Hypertension Denies:: Cancer, Diabetes Mellitus Type 1, Internal Pacemaker, MRSA, Seizures *Have you ever received a pneumonia vaccine?: Yes *Have you received a flu vaccine this season?: Yes Other Medical History: Reports: Hypothyroidism. Denies: Blood Transfusion Reaction Other Surgeries: Yes: BSO, Cholecystectomy, Tubal Ligation. No: Pacemaker Amputation: No Fractures: No - *Social History Smoking Status: Never smoker Alcohol Intake: never Substance Use Type: denies use *Occupational Status:: other Housing: house Household Members: family *Travel in the last 8 weeks: None - Psychiatric History Pschychiatric History:: Reports:: Depression Family Hx:: No significant family history
== END ==
PROVIDERS: PCP Emergency Medicine; Visit Provider Clinical Nurse Specialist Family Health
DX: M51.16 Intervertebral disc disorders with radiculopathy, lumbar region (principal); G57.73 Causalgia of bilateral lower limbs
CPT/HCPCS: 99212

== ENCOUNTER → 2019-11-24 09:06 | Outpatient (POV) | payer BC, SELFPAY ==
--- NOTE | 2019-11-24 09:28 | HMH.VVPMSO ---
[facility] PM Virtual Visit SOAP Consent for virtual visit:: With the recent concerns about the COVID-19, we are trying to minimize exposure to you by shifting to telehealth appointments whenever possible. It restricts me from seeing you in person, but the trade off is protecting you during this pandemic. Can you see and hear me okay, and do you consent to this option? If not, I would be happy to see if we can reschedule your appointment in the future, when feasible. Has patient consented to this virtual visit?: Yes Subjective:: Patient is a pleasant 59-year-old white female who presents today for follow-up. Patient had spinal cord stimulator implant and is doing extremely well with that she rates her pain a 0 out of 10 today. She has CRPS type II of her lower extremities. She is recently furloughed from work and is staying at home due to the pandemic. She is overall doing well. She states that there is no redness or soreness around the battery site. Stitches were removed in her [facility]. ROS General: no recent weight change, no fever, no sleep disturbances Respiratory: no cough, no shortness of air, no recurring pulmonary infections Cardiovascular/Peripheral Vascular: No chest pain, No palpitations, no edema, no shortness of breath. Gastrointestinal: no new onset incontinence, normal bowel movements reported Genitourinary: no new onset incontinence Musculoskeletal: Back pain, leg pain Psychiatric: normal mood/ affect Neurological: [denies new onset weakness in extremities], [denies new onset balance issues] Objective:: Physical exam: Constitutional: Healthy appearing, well-developed, alert, in no acute distress Psychiatric: Judgment and insight intact, Alert and oriented x4 Mood and affect: Mood normal, affect appropriate Head and face: Inspection: Normocephalic atraumatic, extraocular movement intact Respiratory: Breathing nonlabored, nondyspneic Cardiovascular: No cyanosis, clubbing, or edema observed Skin: Head and neck: Skin with no lesions or rash observed Gait: Able to walk without assistive device: Able to heel and toe walk Neurologic: Sensation grossly intact per patient Musculoskeletal: Decreased range of motion lumbar spine Assessment:: Degenerative disc disease lumbar spine lumbar radiculopathy and CRPS type II Plan:: Patient overall doing well. We will see her back in 2 months reassess her symptoms at that time she has been instructed to call the office if she has any issues prior to her next appointment. This encounter was performed as a telemedicine visit via secure 2 way video and audio to minimize risk and transmission of Covid-19. The patient and we understand the limitations of a telemedicine visit including inability to check reflexes, possibly missing subtle findings on physical exam. Alternative options were presented to the patient and the patient elected to proceed with the visit. We specifically discussed risk factors for Covid-19 including age, heart or lung disease, diabetes, immunosuppression and travel. We also discussed that NSAIDs may worsen Covid-19 infection symptoms and that they should not be used to treat Covid-19 symptoms. Patient was also informed that corticosteroids in any form oral or injectable will decrease immune response and may increase risk of Covid-[address] Patel has reviewed this patient's chart and this note and agrees with plan of care. Patient has been instructed to call the office if they have any issues prior to the next appointment. Time In:: 09:05 Time Out:: 09:15 [facility] History I have reviewed the patient's past medical history: Yes Medical History: Reports:: Depression, Diabetes Mellitus Type 2, Hyperlipidemia, Hypertension Denies:: Cancer, Diabetes Mellitus Type 1, Internal Pacemaker, MRSA, Seizures *Have you ever received a pneumonia vaccine?: Yes *Have you received a flu vaccine this season?: Yes Other Medical History: Reports: Hypothyroid
--- NOTE | 2019-12-11 14:27 | PC.NURSE ---
LUIZ CALLED INTO [facility] PER PROVIDER ORDER
== END ==
PROVIDERS: Visit Provider Clinical Nurse Specialist Family Health
DX: M51.16 Intervertebral disc disorders with radiculopathy, lumbar region (principal); G57.73 Causalgia of bilateral lower limbs
CPT/HCPCS: 99211

== ENCOUNTER → 2019-12-05 13:21 | Outpatient (CLI) | payer BC, SELFPAY ==
--- NOTE | 2019-12-05 13:29 | XR_ITS ---
PROCEDURE: XR HAND LT MIN 3V Patient Age:59Y CLINICAL INDICATION: thumb locks up past 4 months COMPARISON: No exams were available for comparison FINDINGS: Mild degenerative changes at the hand. Regarding the thumb/1st ray: There is very subtle narrowing at the 1st carpal-metacarpal joint which may reflect some very minor early degenerative changes here. Perhaps scant sclerosis about this joint. Otherwise at the thumb the 1st MTP joint is intact and satisfactory.. Borderline-scant narrowing at IP joint of thumb with subtle sharpening joint margins. These features may may reflect some scant degenerative changes IP joint thumb but negligible and unimpressive at this level There is slight narrowing a mild hypertrophic changes about DIP joint of finger 2, 3, 4 and 5 reflecting mild degenerative changes throughout DIP joints. The PIP joints are fairly well maintained. MCP joints unremarkable. Bones are well mineralized. No erosive changes. What is seen at the wrist appears satisfactory with joint spaces well maintained. 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 Perhaps some very early scant degenerative changes at 1st carpal-metacarpal joint. . Only borderline narrowing scant degenerative changes at IP joint of thumb Correlation required No prominent or acute findings. Dictated by: Mac Wyatt MD 12/06/2019 13:48 Electronically signed by Mac Wyatt MD in [place] 12/06/2019 13:48
== END ==
PROVIDERS: PCP Emergency Medicine; Visit Provider Nurse Practitioner Family
DX: M24.842 Other specific joint derangements of left hand, not elsewhere classified (principal)
CPT/HCPCS: 73130

== ENCOUNTER → 2019-12-31 12:49 | Outpatient (CLI) | payer BC, SELFPAY ==
--- NOTE | 2019-12-31 12:55 | XR_ITS ---
PROCEDURE: XR FOOT WT BEARING LT 3V CLINICAL INDICATION: pain COMPARISON: No exams were available for comparison FINDINGS: No fracture or dislocation. No lytic or blastic change. There is normal mineralization. The joint spaces are well-preserved. No significant degenerative/arthritic changes. No erosive changes evident. Other findings:None. IMPRESSION: Negative left foot Dictated by: Max Rocha MD 12/31/2019 13:33 Electronically signed by Max Rocha MD in [place] 12/31/2019 13:33
--- NOTE | 2019-12-31 12:55 | XR_ITS ---
PROCEDURE: XR FOOT WT BEARING RT 3V CLINICAL INDICATION: pain COMPARISON: XR FOOT WT BEARING LT 3V from 12/31/2019 FINDINGS: No fracture or dislocation. No lytic or blastic change. There is normal mineralization. The joint spaces are well-preserved. No significant degenerative/arthritic changes. No erosive changes evident. Other findings:Faint segmental calcification is present dorsal to the posterior aspect of the talus IMPRESSION: Calcification dorsal to the posterior aspect of the talus otherwise negative. 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 The other 2 could be secondary to an old injury. Dictated by: Max Rocha MD 12/31/2019 13:29 Electronically signed by Max Rocha MD in [place] 12/31/2019 13:29
== END ==
PROVIDERS: PCP Emergency Medicine; Visit Provider Podiatrist
DX: M79.672 Pain in left foot (principal); M79.671 Pain in right foot
CPT/HCPCS: 73630

== ENCOUNTER → 2020-01-25 09:41 | Outpatient (POV) | payer BC, SELFPAY ==
[2020-01-25 09:46] VITALS: BP 155/80; PULSE 93; RESP 18; O2SAT 98; BMI 41.8
--- NOTE | 2020-01-25 09:55 | P.CONS_ITS ---
[facility] Pain Management SOAP Note Subjective:: Is a pleasant 59-year-old white female who presents today for follow-up. She rates her pain today a 1 out of 10. She is doing well with her neurostimulator. She is having left foot problems including plantar fasciitis and bone spur on her heel per her. He she is currently in a boot she states that this does increase her back pain somewhat due to the way that it makes her walk. Patient overall doing well and needs no adjustments today. ROS General: no recent weight change, no fever, no sleep disturbances Respiratory: no cough, no shortness of air, no recurring pulmonary infections Cardiovascular/Peripheral Vascular: No chest pain, No palpitations, no edema, no shortness of breath. Gastrointestinal: no new onset incontinence, normal bowel movements reported Genitourinary: no new onset incontinence Musculoskeletal: Back pain, leg pain, left foot pain Psychiatric: normal mood/ affect, [denies depression], [denies anxiety] Neurological: [denies new onset weakness in extremities], [denies new onset balance issues] Objective:: Physical Exam General: Alert and oriented x3, no acute distress, pleasant and cooperative, [on room air] Lungs: Resps E/U, Symmetrical chest expansion, Eyes: PERRL Musculoskeletal: Flexion and extension of lumbar spine somewhat guarded secondary to pain, deep tendon reflexes normal, strength in upper and lower extremities [5/5], [abnormal gait noted] Neurological: speech clear, enrollment management manager equal, no gross sensory deficits Assessment:: 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 She is also been instructed to notify us of the medicare sales representative if she needs any changes with her neurostimulator. Dr. Patel has reviewed this note and agrees with this plan of care. This note was dictated using voice recognition software and may contain errors or omissions [facility] History I have reviewed the patient's past medical history: Yes Medical History: Reports:: Depression, Diabetes Mellitus Type 2, Hyperlipidemia, Hypertension Denies:: Cancer, Diabetes Mellitus Type 1, Internal Pacemaker, MRSA, Seizures *Have you ever received a pneumonia vaccine?: Yes *Have you received a flu vaccine this season?: Yes Other Medical History: Reports: Arthritis, Hypothyroidism, Thyroid Disease. Denies: Blood Transfusion Reaction Other Surgeries: Yes: BSO, Cholecystectomy, Colonoscopy, Tubal Ligation. No: Pacemaker Amputation: No Fractures: No - *Social History Smoking Status: Never smoker Alcohol Intake: never Substance Use Type: denies use *Occupational Status:: other Housing: house Household Members: family *Travel in the last 8 weeks: None - Psychiatric History Pschychiatric History:: Reports:: Depression Family Hx:: Diabetes, Heart Attack, Stroke, Hypertension, Hyperlipidemia
== END ==
PROVIDERS: PCP Emergency Medicine; Visit Provider Clinical Nurse Specialist Family Health
DX: M51.16 Intervertebral disc disorders with radiculopathy, lumbar region (principal)
CPT/HCPCS: 99212

== ENCOUNTER → 2020-01-27 15:06 | Outpatient (CLI) | payer BC, SELFPAY ==
[2020-01-27 15:33] LABS: Basophils # 0.1 K/mm3 (0-0.2); Basophils % 0.5 % (0.1-2.0); Eosinophils # 0.2 K/mm3 (0.0-0.4); Eosinophils % 2.1 % (0.1-12.0); Hematocrit 43.5 % (37.0-47.0); Hemoglobin 14.3 g/dL (12.2-16.2); Lymphocytes % 17.4 % (10-50); Mean Corpuscular HGB Conc 32.9 g/dL (31.8-35.4); Mean Corpuscular Hemoglobin 28.9 pg (27.0-31.2); Mean Corpuscular Volume 87.9 fl (81-99); Mean Platelet Volume 9.6 fl (7.4-10.4); Monocytes # 0.5 K/mm3 (0.1-1.0); Monocytes % 4.7 % (1.7-9.3); Neutrophils # 8.7 K/mm3 (1.8-7.8); Neutrophils % 75.3 % (37.0-80.0); Platelet Count 281 K/mm3 (142-424); Red Blood Count 4.95 M/mm3 (4.20-5.40); Red Cell Distribution Width 14.1 % (11.5-17.5); White Blood Count 11.5 K/mm3 (4.8-10.8)
[2020-01-27 15:38] LABS: Chloride 101 mmol/L (98-107)
[2020-01-27 15:39] LABS: Potassium 4.6 mmoL/L (3.5-5.1); Sodium 136 mmol/L (136-145)
[2020-01-27 15:41] LABS: Alanine Aminotransferase 44 U/L (12-78); Aspartate Amino Transferase 37 U/L (14-36); Blood Urea Nitrogen 14 mg/dl (7-17); Estimated Glomerular Filt Rate 86 ml/min (>60); GFR (African American) 104 ML/MIN (>60)
[2020-01-27 15:42] LABS: Albumin Level 4.1 g/dl (3.5-5.0); Albumin/Globulin Ratio 1.4 (1.1-1.8); Alkaline Phosphatase 123 U/L (38-126); Anion Gap 11.6 mEq/L (5-15); Bilirubin,Total 0.6 mg/dl (0.2-1.3); Calcium 9.3 mg/dl (8.4-10.2); Carbon Dioxide 28 mmol/L (22.0-30.0); Chol/HDL Ratio 2.9 (1-3.5); Cholesterol 156 mg/dl (140-200); Globulin 2.9 g/dL (1.3-3.2); Glucose 246 mg/dl (74-100); HDL Cholesterol 53 mg/dl (40-60); Triglycerides 120 mg/dl (30-150); VLDL Cholesterol 24 mg/dL (0-40)
[2020-01-27 15:53] LABS: Direct LDL Cholesterol 99.76 mg/dL (100-129)
[2020-01-27 15:59] LABS: T4 (Thyroxine) 9.4 ug/dl (5.53-11.0)
[2020-01-27 16:13] LABS: Thyroid Stimulating Hormone 2.48 uIU/mL (0.465-4.68)
[2020-01-27 16:37] LABS: Hemoglobin A1C 8.8 % (4.0-6.0)
[2020-01-29 11:16] LABS: Creatinine, Urine 67.2 mg/dL (Not Estab.); Microalbumin, Urine 13.9 ug/mL (Not Estab.)
[2020-01-29 11:17] LABS: Vitamin D 25 Hydroxy 31.1 ng/mL (30.0-100.0)
== END ==
PROVIDERS: Visit Provider Nurse Practitioner Family
DX: E11.9 Type 2 diabetes mellitus without complications (principal); Z79.84 Long term (current) use of oral hypoglycemic drugs; Z79.899 Other long term (current) drug therapy
CPT/HCPCS: 80053; 80061; 82043; 82570; 82652; 83036; 84436; 84443; 85025

== ENCOUNTER → 2020-03-02 10:21 | Outpatient (CLI) | payer BC, SELFPAY ==
--- NOTE | 2020-03-02 10:22 | MM_ITS ---
PROCEDURE: MM DIG SCREENING MAMM BI W/CAD Digital Breast Tomosynthesis Included CLINICAL INDICATION: screening There is no personal or family history of breast cancer. COMPARISON: DIG MAMMO BILAT SCREENING from 04/26/2010 DIG MAMMO BILAT SCREENING from 04/27/2011 DIG MAMM-SCREEN JAMI from 12/30/2018 TECHNIQUE: Standard CC and MLO images and 3D Tomosynthesis was obtained. R2 CAD reviewed. FINDINGS: The breasts are composed primarily of fat with minimal scattered fibroglandular densities throughout each breast. There is a small cluster stable benign-appearing microcalcifications inner quadrant right breast. There is no suspicious lesion and no suspicious microcalcifications. IMPRESSION: Stable low-density fatty breast with no suspicious lesions seen BI-RAD Category: 2 Benign Finding(s) FOLLOW-UP: 1YR 1 Year Follow-up (A letter has been sent to the patient regarding results of the study.) Dictated by: Dr. Frankie Rodriguez MD 03/04/2020 07:[address] Frankie Rodriguez MD in [place] 03/04/2020 07:54
== END ==
PROVIDERS: PCP Emergency Medicine; Visit Provider Nurse Practitioner Family
DX: Z12.31 Encounter for screening mammogram for malignant neoplasm of breast (principal)
CPT/HCPCS: 77063; 77067

== ENCOUNTER → 2020-07-28 09:13 | Outpatient (POV) | payer BC, SELFPAY ==
[2020-07-28 09:25] VITALS: BP 152/80; PULSE 100; RESP 20; TEMP 36.7; O2SAT 94; BMI 42.2
--- NOTE | 2020-07-28 09:38 | P.CONS_ITS ---
[facility] Pain Management SOAP Note Subjective:: Patient is a pleasant 60-year-old white female who presents today for follow-up. Patient was doing extremely well with her neurostimulator rating her pain a 1 out of 10 back in the summertime however she rates her pain a 4 out of 10 at this time. She does have left foot problems including pain plantar fasciitis and bone spurs. Patient states most of her pain today is in her low back and down her legs. We discussed epidural injections and nerve blocks she would like to move forward with this. She also is in need of a reprogram for her [employer] neurostimulator. She has recently moved to [place] we will set this up in our [place] location. Patient is not on any anticoagulation therapy. ROS General: no recent weight change, no fever, no sleep disturbances Respiratory: no cough, no shortness of air, no recurring pulmonary infections Cardiovascular/Peripheral Vascular: No chest pain, No palpitations, no edema, no shortness of breath. Gastrointestinal: no new onset incontinence, normal bowel movements reported Genitourinary: no new onset incontinence Musculoskeletal: Back pain, leg pain Psychiatric: normal mood/ affect Neurological: [denies new onset weakness in extremities], [denies new onset balance issues] Objective:: Physical Exam General: Alert and oriented x3, no acute distress, pleasant and cooperative, [on room air] Lungs: Resps E/U, Symmetrical chest expansion, Eyes: PERRL Musculoskeletal: Flexion and extension of lumbar spine somewhat guarded secondary to pain, deep tendon reflexes normal, strength in upper and lower extremities [5/5], [abnormal gait noted] Neurological: speech clear, sales & service associate equal, no gross sensory deficits Assessment:: 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 We will also ensure that the [employer] sales representative consultant is there to reprogram her at that time. I have answered all the patient's questions. Patient has been instructed to call our office if she has any issues prior to her next appointment. Dr. Patel has reviewed this note and agrees with this plan of care. This note was dictated using voice recognition software and may contain errors or omissions [facility] History I have reviewed the patient's past medical history: Yes Medical History: Reports:: Depression, Diabetes Mellitus Type 2, Hyperlipidemia, Hypertension Denies:: Cancer, Diabetes Mellitus Type 1, Internal Pacemaker, MRSA, Seizures *Have you ever received a pneumonia vaccine?: Yes *Have you received a flu vaccine this season?: Yes Other Medical History: Reports: Arthritis, Hypothyroidism, Thyroid Disease. Denies: Blood Transfusion Reaction Other Surgeries: Yes: BSO, Cholecystectomy, Colonoscopy, Tubal Ligation. No: Pacemaker Amputation: No Fractures: No - *Social History Smoking Status: Never smoker Alcohol Intake: never Substance Use Type: denies use *Occupational Status:: other Housing: house Household Members: family *Travel in the last 8 weeks: None - Psychiatric History Pschychiatric History:: Reports:: Depression Family Hx:: Diabetes, Heart Attack, Stroke, Hypertension, Hyperlipidemia
== END ==
PROVIDERS: Visit Provider Clinical Nurse Specialist Family Health
DX: M51.16 Intervertebral disc disorders with radiculopathy, lumbar region (principal)
CPT/HCPCS: 99212

== ENCOUNTER 2020-12-07 10:33 | Day surgery (SDC) | payer BC, SELFPAY ==
[2020-12-06 10:19] VITALS: BMI 40.3
[2020-12-07 12:03] VITALS: BP 135/85; PULSE 80; RESP 18; TEMP 36.9; O2SAT 96
[2020-12-07 12:26] LABS: Basophils # 0.1 K/mm3 (0-0.2); Basophils % 0.7 % (0.1-2.0); Eosinophils # 0.4 K/mm3 (0.0-0.4); Hematocrit 46.3 % (37.0-47.0); Hemoglobin 14.9 g/dL (12.2-16.2); Lymphocytes # 2.2 K/mm3 (0.7-4.5); Lymphocytes % 16.5 % (10-50); Mean Corpuscular HGB Conc 32.2 g/dL (31.8-35.4); Mean Corpuscular Hemoglobin 27.4 pg (27.0-31.2); Mean Corpuscular Volume 85.1 fl (81-99); Mean Platelet Volume 8.4 fl (7.4-10.4); Monocytes # 0.6 K/mm3 (0.1-1.0); Monocytes % 4.2 % (1.7-9.3); Neutrophils # 10.1 K/mm3 (1.8-7.8); Neutrophils % 75.6 % (37.0-80.0); Platelet Count 299 K/mm3 (142-424); Red Blood Count 5.44 M/mm3 (4.20-5.40); Red Cell Distribution Width 14.1 % (11.5-17.5); White Blood Count 13.4 K/mm3 (4.8-10.8)
[2020-12-07 12:38] LABS: Anion Gap 11.5 mEq/L (5-15); Blood Urea Nitrogen 17 mg/dl (7-17); Calcium 9.5 mg/dl (8.4-10.2); Carbon Dioxide 28 mmol/L (22.0-30.0); Chloride 103 mmol/L (98-107); Creatinine Clearance Estimated 138 mL/min (50-200); Estimated Glomerular Filt Rate 102 ml/min (>60); GFR (African American) 123 ML/MIN (>60); Glucose 151 mg/dl (74-100); Potassium 4.5 mmoL/L (3.5-5.1); Sodium 138 mmol/L (136-145)
[2020-12-07 12:54] LABS: Coronavirus 19 IgG Antibody Positive (Negative); Coronavirus 19 IgM Antibody Negative (Negative)
--- NOTE | 2020-12-07 12:57 | P.PN_ITS ---
[facility] Anesthesia Checklist - Patient Identification Patient Identification: Arm Band - Structural Data Admitted From: Home Planned Operative Procedure/s: Spinal Cord Stimulator implants/revision Consent for Planned Operative Procedure(s) Verified: Yes Verified Documents: Surgical Consent, History and Physical - Additional verifications Anesthesia Reactions: No Hx Blood Transfusions: No Blood Transfusion Reaction: No - Neurological Assessment Level of Consciousness: Awake, Alert - Anesthesia Plan Anesthesia Risk discussed: Yes Anesthesia Plan: Verified Anesthesia Type: MAC [facility] History Medical History: Reports:: Depression, Diabetes Mellitus Type 2, Hyperlipidemia, Hypertension Denies:: Cancer, Diabetes Mellitus Type 1, Internal Pacemaker, MRSA, Seizures *Have you ever received a pneumonia vaccine?: Yes *Have you received a flu vaccine this season?: Yes Other Medical History: Reports: Arthritis, Hypothyroidism, Thyroid Disease. Denies: Blood Transfusion Reaction Anesthesia experience/problems:: None Other Surgeries: Yes: BSO, Cholecystectomy, Colonoscopy, Tubal Ligation. No: Pacemaker Amputation: No Fractures: No - *Social History Last grade of school completed: High school graduate Smoking Status: Never smoker Alcohol Intake: never Substance Use Type: denies use *Occupational Status:: disabled Housing: house Household Members: family *Travel in the last 8 weeks: None - Psychiatric History Pschychiatric History:: Reports:: Depression Family Hx:: Diabetes, Heart Attack, Stroke, Hypertension, Hyperlipidemia
--- NOTE | 2020-12-07 15:01 | HMH.OPNOTE ---
Date of procedure: 12/07/20 Pre-op Diagnosis:: Malposition spinal cord stimulator leads for degenerative disc disease of lumbar spine with lumbar radiculopathy symptoms Post-op Diagnosis:: Same Procedure performed:: Revision/replacement spinal cord stimulator leads for degenerative disc disease of lumbar spine with lumbar radiculopathy symptoms Surgeon:: Figueroa Patel MD Systems Analysis Manager(s):: Tucker Oh MD GRANT WRITER:: Other Anesthesia: MAC Estimated blood loss (mL): 15 Clinical Note:: This patient is a pleasant 60-year-old white female who we have been treating for low back pain and left hip and left leg pain. She did have a spinal cord stimulator placed approximately a year ago. She was getting good stimulation up till recently after recent fall. We did take a look at her leads under fluoroscopy and found that her leads were pulled out about 1-1/2 vertebral bodies and over to the right. She lost all stimulation on the left side which was where her primary pain was located. We reprogrammed her to try to capture good stimulation however we were unable to do so. She presents today for revision/replacement of her spinal cord stimulator leads. Operative findings:: None Operative note:: Informed consent was obtained and the risk and benefits of the procedure were explained to the patient. The patient was taken to the operating room placed prone on the procedure table. She was prepped and draped in sterile fashion. C-arm fluoroscopy was used to view the stimulator battery. We anesthetized the skin and subcutaneous tissues and made an incision and dissected out the stimulator battery. We unscrewed the leads from the battery. We then moved the lead anchors. The skin and subcutaneous tissues were anesthetized using lidocaine I made an incision and dissected down to the lead anchors. We cut the 2-0 Prolene sutures that were holding the anchors in place. We were unable to pull the leads through from the battery pocket. We cut the leads and took the leads completely out because we were unable to manipulate these leads to get him in the proper position. I then took a 17-gauge epidural needle and advanced into the L1-L2 interspace. After confirmation of needle placement in the epidural space a stimulating lead was inserted and advanced very easily to the T8-T9 vertebral body. This was done with the assistance of a percutaneous lead introducer kit. A second needle was inserted and advanced again into the L1-L2 interspace. Again after confirmation of needle placement in the epidural space a second lead was inserted and advanced again to the T8-T9 vertebral body. The leads were checked in AP and lateral views. The stylets and needles were removed. The leads were anchored in place with 2-0 Prolene. I tunneled leads from the back to the battery pocket. I attached the leads to the battery. Impedances were checked and found to be okay. Both incisions were irrigated with bacitracin solution. The battery was placed in the battery pocket. Both incisions were then closed with 2-0 Vicryl followed by 4-0 nylon. A wound VAC was placed over both incisions. The patient was placed in an abdominal binder taken recovery in stable condition. The patient tolerated the procedure well with no complications. Patient was programmed by the [employer] product representative with good stimulation in all areas of pain. She was put on a combination program of HD and tonic. Patient was discharged home neurologically intact with good relief of pain symptoms. Plan and disposition: We will follow-up with this patient on Saturday in our [place] office. We will reprogram her at that time. This will also be a wound check. Condition: stable Disposition: PACU Complications:: None
[2020-12-07 15:06] VITALS: BP 135/75; PULSE 82; RESP 14; TEMP 36.4; O2SAT 97
[2020-12-07 15:16] VITALS: BP 160/91; PULSE 76; RESP 16; TEMP 36.4; O2SAT 96
[2020-12-07 15:26] VITALS: BP 133/73; PULSE 70; RESP 16; TEMP 36.4; O2SAT 97
[2020-12-07 15:36] VITALS: BP 153/83; PULSE 72; RESP 16; TEMP 36.4; O2SAT 98
[2020-12-07 16:06] VITALS: BP 144/77; PULSE 70; RESP 16; TEMP 36.8; O2SAT 99
[2020-12-07 17:04] LABS: POC Glucose,Bedside 154 (70-110)
== END 2020-12-07 16:10 | disposition home or self-care (01) ==
LOC: OR 10:35
PROVIDERS: Visit Provider Anesthesiology
PROC: (CPT 63663; principal; 2020-12-07 13:00)
DX: T85.122A Displacement of implanted electronic neurostimulator of spinal cord electrode (lead), initial encounter (principal); M51.16 Intervertebral disc disorders with radiculopathy, lumbar region; F32.9 Major depressive disorder, single episode, unspecified; E11.9 Type 2 diabetes mellitus without complications; E78.5 Hyperlipidemia, unspecified; I10 Essential (primary) hypertension; M19.90 Unspecified osteoarthritis, unspecified site; E03.9 Hypothyroidism, unspecified; Z90.49 Acquired absence of other specified parts of digestive tract; Z83.3 Family history of diabetes mellitus; Z82.3 Family history of stroke; Z82.49 Family history of ischemic heart disease and other diseases of the circulatory system; Z83.438 Family history of other disorder of lipoprotein metabolism and other lipidemia
CPT/HCPCS: 63663; 80048; 82962; 85025; 86328; 96374; C1778; J2704; J3370

== ENCOUNTER → 2021-08-21 10:03 | Outpatient (POV) | payer BC, SELFPAY ==
[2021-08-21 10:22] VITALS: BP 146/63; PULSE 89; RESP 18; O2SAT 97; BMI 41.1
--- NOTE | 2021-08-21 11:00 | HMH.PAINSOAP ---
[facility] Pain Management SOAP Note Subjective:: Patient is a pleasant 61 year old female who is here for follow-up and medication refill. Patient is currently being treated for degenerative disc disease of the lumbar spine with lumbar radiculopathy. Patient is being managed with a spinal cord stimulator and lyrica 75mg qd. Patient denies any side effects from this medication. Patient denies any change to the location and type of pain. Patient rates her pain today at 2/10. Her yamilet is [id number] with an active morphine equivalent of 0. Drug screens have been approved and appropriate. ORT score is 0, low risk. General: No recent weight changes, no fever, no sleep disturbances Respiratory: No cough, no shortness of air, no recurring pulmonary infections Cardiovascular/peripheral vascular: No chest pain, no palpitations, no edema, no shortness of breath Gastrointestinal: No new onset incontinence, normal bowel movements reported Genitourinary: No new onset incontinence Musculoskeletal: low back pain Psychiatric: [Normal mood/affect] Neurological: [Denies weakness in extremities], [denies balance issues] Objective:: General: Alert and oriented x3, no acute distress, pleasant and cooperative, [on room air] Lungs: Respirations even and unlabored, symmetrical chest expansion Eyes: PERRL Musculoskeletal: Flexion and extension of lumbar [spine] somewhat guarded secondary to pain, [antalgic gait noted] Neurological: Speech clear, no gross sensory deficit Assessment:: Degenerative disc disease of the lumbar spine with lumbar radiculopathy Plan:: We will continue the patient's lyrica 75mg daily. We will provide the patient with 3months of refills. We would like to see the patient back in 3months for follow-up. Risks and benefits of the medication have been explained in detail to the patient. The patient does understand the risk of dependence on the medication when given over a prolonged period. Patient has been advised of risks of oversedation with the prescribed medication. Narcan has been offered to the paitent in the event of oversedation. Patient has been advised that a family member should also be educated regarding administration of Narcan. The patient has been advised to consult with his/her primary care provider and pharmacist regarding drug-drug interaction of medications currently prescribed. Patient has been prescribed a controlled substance after being counseled on the medication, medication safety, and possible side effects. Opioid contract was reviewed and signed by the patient, and that they have agreed to all of the terms set forth by our compliance program. [facility] History Medical History: Reports:: Depression, Diabetes Mellitus Type 2, Hyperlipidemia, Hypertension Denies:: Cancer, Diabetes Mellitus Type 1, Internal Pacemaker, MRSA, Seizures *Have you ever received a pneumonia vaccine?: No *Have you received a flu vaccine this season?: Yes Other Medical History: Reports: Arthritis, Hypothyroidism, Thyroid Disease. Denies: Blood Transfusion Reaction Other Surgeries: Yes: BSO, Cholecystectomy, Colonoscopy, Tubal Ligation. No: Pacemaker Amputation: No Fractures: No - *Social History Smoking Status: Never smoker Alcohol Intake: never Substance Use Type: denies use *Occupational Status:: unemployed Housing: house Household Members: family *Travel in the last 8 weeks: None - Psychiatric History Pschychiatric History:: Reports:: Depression Family Hx:: Diabetes, Heart Attack, Stroke, Hypertension, Hyperlipidemia
--- NOTE | 2021-08-22 08:07 | HMH.PAINSOAP ---
[facility] Pain Management SOAP Note Subjective:: Patient is a pleasant 61 year old female who is here for follow-up and medication refill. Patient is currently being treated for degenerative disc disease of the lumbar spine with lumbar radiculopathy. Patient is being managed with a spinal cord stimulator and lyrica 75mg qd. Patient denies any side effects from this medication. Patient denies any change to the location and type of pain. Patient rates her pain today at 2/10. Her yamilet is [id number] with an active morphine equivalent of 0. Drug screens have been approved and appropriate. ORT score is 0, low risk. General: No recent weight changes, no fever, no sleep disturbances Respiratory: No cough, no shortness of air, no recurring pulmonary infections Cardiovascular/peripheral vascular: No chest pain, no palpitations, no edema, no shortness of breath Gastrointestinal: No new onset incontinence, normal bowel movements reported Genitourinary: No new onset incontinence Musculoskeletal: low back pain Psychiatric: [Normal mood/affect] Neurological: [Denies weakness in extremities], [denies balance issues] Objective:: Objective:: General: Alert and oriented x3, no acute distress, pleasant and cooperative, [on room air] Lungs: Respirations even and unlabored, symmetrical chest expansion Eyes: PERRL Musculoskeletal: Flexion and extension of lumbar [spine] somewhat guarded secondary to pain, [antalgic gait noted] Neurological: Speech clear, no gross sensory deficit Assessment:: Assessment:: Degenerative disc disease of the lumbar spine with lumbar radiculopathy Plan:: We will continue the patient's lyrica 75mg daily. We will provide the patient with 3months of refills. We would like to see the patient back in 3months for follow-up. Risks and benefits of the medication have been explained in detail to the patient. The patient does understand the risk of dependence on the medication when given over a prolonged period. Patient has been advised of risks of oversedation with the prescribed medication. Narcan has been offered to the paitent in the event of oversedation. Patient has been advised that a family member should also be educated regarding administration of Narcan. The patient has been advised to consult with his/her primary care provider and pharmacist regarding drug-drug interaction of medications currently prescribed. Patient has been prescribed a controlled substance after being counseled on the medication, medication safety, and possible side effects. Opioid contract was reviewed and signed by the patient, and that they have agreed to all of the terms set forth by our compliance program. ORT IS LOW RISK. PATIENT HAS SIGNED AND COMPLETED PAIN MANAGEMENT AGREEMENT. [facility] History I have reviewed the patient's past medical history: Yes Medical History: Reports:: Depression, Diabetes Mellitus Type 2, Hyperlipidemia, Hypertension Denies:: Cancer, Diabetes Mellitus Type 1, Internal Pacemaker, MRSA, Seizures *Have you ever received a pneumonia vaccine?: No *Have you received a flu vaccine this season?: Yes Other Medical History: Reports: Arthritis, Hypothyroidism, Thyroid Disease. Denies: Blood Transfusion Reaction Other Surgeries: Yes: BSO, Cholecystectomy, Colonoscopy, Tubal Ligation. No: Pacemaker Amputation: No Fractures: No - *Social History Smoking Status: Never smoker Alcohol Intake: never Substance Use Type: denies use *Occupational Status:: unemployed Housing: house Household Members: family *Travel in the last 8 weeks: None - Psychiatric History Pschychiatric History:: Reports:: Depression Family Hx:: Diabetes, Heart Attack, Stroke, Hypertension, Hyperlipidemia
== END ==
PROVIDERS: Visit Provider Clinical Nurse Specialist Family Health
DX: M51.16 Intervertebral disc disorders with radiculopathy, lumbar region (principal)
CPT/HCPCS: 99212; G0463

== ENCOUNTER → 2022-02-05 14:44 | Outpatient (POV) | payer BC, SELFPAY ==
[2022-02-05 14:52] VITALS: BP 143/63; PULSE 80; RESP 20; TEMP 36.7; O2SAT 100; BMI 35.9
--- NOTE | 2022-02-05 15:06 | P.CONS_ITS ---
[facility] Pain Management SOAP Note Subjective:: Patient is a pleasant 61-year-old female who is here for medication refill. Patient is currently being treated for degenerative disc disease of lumbar spine with lumbar radiculopathy. She does have a spinal cord stimulator and Lyrica 75 mg 3 times daily. Patient request medication refill today. She denies any side effects of this medication. Patient states pain remains in the left lower leg area that is dull, achy. She rates her pain today at 3 out of 10. Patient has previously undergone chemo and radiation for rectal cancer. Patient is scheduled to return for CT scan March 06 for updated prognosis. Patient's oncologist, Daryl Turner, is continuing oxycodone medication refills at this time. Her Hima is [id number] with a morphine equivalent of 0. It has been reviewed and appropriate. Review of Systems: General: No recent weight changes, no fever, no sleep disturbances Respiratory: No cough, no shortness of air, no recurring pulmonary infections Cardiovascular/peripheral vascular: No chest pain, no palpitations, no edema, no shortness of breath Gastrointestinal: No new onset incontinence, normal bowel movements reported Genitourinary: No new onset incontinence Musculoskeletal: Low back pain Psychiatric: [Normal mood/affect] Neurological: [Denies weakness in extremities], [denies balance issues] Objective:: Physical Exam: General: Alert and oriented x3, no acute distress, pleasant and cooperative Lungs: Respirations even and unlabored, symmetrical chest expansion Eyes: PERRL Musculoskeletal: Flexion and extension of lumbar [spine] somewhat guarded secondary to pain, [antalgic gait noted] Neurological: Speech clear, no gross sensory deficit Assessment:: Degenerative disc disease of lumbar spine with lumbar radiculopathy, rectal cancer Plan:: We will continue the patient's Lyrica 75 mg daily 3 times a day. We will prescribe 3 months of refills. She will follow up in in the office in 3 months. Risk and benefits of the medication have been explained in detail to the patient. The patient understands the risk of dependence on medication when given over a prolonged period. Patient has also been advised of risk of oversedation with the prescribed medication. Patient has been instructed to contact the clinic with any concerns before the next appointment. Dr. Patel has reviewed this note and agrees with this plan of care. This note was dictated using voice recognition software and make contain errors or omissions. [facility] History I have reviewed the patient's past medical history: Yes Medical History: Reports:: Depression, Diabetes Mellitus Type 2, Hyperlipidemia, Hypertension Denies:: Cancer, Diabetes Mellitus Type 1, Internal Pacemaker, MRSA, Seizures *Have you ever received a pneumonia vaccine?: Yes *Have you received a flu vaccine this season?: Yes Other Medical History: Reports: Arthritis, Hypothyroidism, Thyroid Disease. Denies: Blood Transfusion Reaction Other Surgeries: Yes: BSO, Cholecystectomy, Colonoscopy, Tubal Ligation. No: Pacemaker Amputation: No Fractures: No - *Social History Smoking Status: Never smoker Alcohol Intake: never Substance Use Type: denies use *Occupational Status:: other Housing: house Household Members: family *Travel in the last 8 weeks: None - Psychiatric History Pschychiatric History:: Reports:: Depression Family Hx:: Diabetes, Heart Attack, Stroke, Hypertension, Hyperlipidemia
== END ==
PROVIDERS: Visit Provider Student in an Organized Health Care Education/Training Program
DX: M51.16 Intervertebral disc disorders with radiculopathy, lumbar region (principal); C20 Malignant neoplasm of rectum
CPT/HCPCS: 99212; G0463

== ENCOUNTER → 2022-05-10 13:51 | Outpatient (POV) | payer BC, SELFPAY ==
[2022-05-10 14:06] VITALS: BP 142/62; PULSE 73; RESP 18; TEMP 36.7; O2SAT 97; BMI 38.0
--- NOTE | 2022-05-10 14:21 | EXP.PAIN.SOA ---
[facility] Pain Management SOAP Note Subjective:: Patient is a pleasant 62-year-old female who presents today for medication refill and follow-up. We are currently treating the patient for degenerative disc disease of lumbar spine with lumbar radiculopathy symptoms. Today the patient rates her pain a 2 out of 10. She states the pain is primarily in her low back and radiates into her left leg. She states this is a dull, achy sensation that is worse with increased activity. Patient has previously undergone chemo and radiation for rectal cancer. Patient is prescribed oxycodone 5 mg by Daryl Turner. She is also managed with pregabalin 75 mg 3 times a day. Patient denies any side effects from these medications. She states these medications are adequately helping manage her pain. She is requesting a refill at today's visit. Her Hima is [id number]. It has been reviewed and appropriate. Review of Systems: General: No recent weight changes, no fever, no sleep disturbances Respiratory: No cough, no shortness of air, no recurring pulmonary infections Cardiovascular/peripheral vascular: No chest pain, no palpitations, no edema, no shortness of breath Gastrointestinal: No new onset incontinence, normal bowel movements reported Genitourinary: No new onset incontinence Musculoskeletal: Low back pain, left leg pain Psychiatric: [Normal mood/affect] Neurological: [Denies weakness in extremities], [denies balance issues] Objective:: Physical Exam: General: Alert and oriented x3, no acute distress, pleasant and cooperative Lungs: Respirations even and unlabored, symmetrical chest expansion Eyes: PERRL Musculoskeletal: Flexion and extension of lumbar [spine] somewhat guarded secondary to pain, [antalgic gait noted] Neurological: Speech clear, no gross sensory deficit Assessment:: Degenerative disc disease of lumbar spine with lumbar radiculopathy symptoms Plan:: Patient continues to have pain along her low back that radiates to her left leg. Patient had limited range of motion of her lumbar spine during today's visit. I will reorder the patient's pregabalin 75 mg 3 times a day and provide 3 months worth of refills. Patient will follow-up in clinic in 3 months for reevaluation of symptoms, medication refill and follow-up. Patient has been advised of risks of oversedation with the prescribed medication. Narcan has been offered to the patient in the event of oversedation. Patient has been advised that a family member should also be educated regarding administration of Narcan. Patient has been instructed to contact the clinic with any concerns before the next appointment. Dr. Patel has reviewed this note and agrees with this plan of care. This note was dictated using voice recognition software and make contain errors or omissions. [facility] Medical History (Updated 03/07/20 @ 16:31 by Chanel Rowe APRN) Depression Hyperlipidemia associated with type 2 diabetes mellitus Hypertension Hypothyroidism Obesity (BMI 30-39.9) Sleep apnea Type II diabetes mellitus Social History Smoking Status: Never smoker alcohol intake: never substance use type: denies use current occupational status: retired Travel in the last 8 weeks: None household members: family housing: house current occupational exposures/hazards: No caffeine: Yes
== END | disposition home or self-care (01) ==
PROVIDERS: Visit Provider Nurse Practitioner Family
DX: M51.16 Intervertebral disc disorders with radiculopathy, lumbar region (principal); Z79.899 Other long term (current) drug therapy
CPT/HCPCS: 99212; G0463

== ENCOUNTER → 2022-08-06 14:49 | Outpatient (POV) | payer BC, SELFPAY ==
[2022-08-06 15:10] VITALS: BP 144/85; PULSE 81; RESP 18; O2SAT 94; BMI 41.8
--- NOTE | 2022-08-06 16:00 | EXP.PAIN.SOA ---
[facility] Pain Management SOAP Note Subjective:: Patient is a pleasant 63-year-old female who is here for medication refill and follow-up. Patient is currently being treated for degenerative disc disease of lumbar spine without radiculopathy symptoms. Patient is being managed with pregabalin 75 mg 3 times a day that is prescribed by this clinic. Patient is also prescribed oxycodone [address] Daryl Turner, oncologist. Patient was diagnosed with rectal cancer. This is in remission. Patient denies any side effects from the medications. Patient denies any changes to the location and type of pain. Patient states that this is adequately helping manage their pain. Rates pain as 3 out of 10. [facility] number [id number] with an active morphine equivalent 0. Drug screens have been reviewed and appropriate. Review of Systems: General: No recent weight changes, no fever, no sleep disturbances Respiratory: No cough, no shortness of air, no recurring pulmonary infections Cardiovascular/peripheral vascular: No chest pain, no palpitations, no edema, no shortness of breath Gastrointestinal: No new onset incontinence, normal bowel movements reported Genitourinary: No new onset incontinence Musculoskeletal: Low back pain Psychiatric: [Normal mood/affect] Neurological: [Denies weakness in extremities], [denies balance issues] Objective:: Physical Exam: General: Alert and oriented x3, no acute distress, pleasant and cooperative Lungs: Respirations even and unlabored, symmetrical chest expansion Eyes: PERRL Musculoskeletal: Flexion and extension of lumbar [spine] somewhat guarded secondary to pain, [antalgic gait noted] Neurological: Speech clear, no gross sensory deficit Assessment:: Degenerative disc disease of lumbar spine with lumbar radiculopathy symptoms, history of rectal cancer Plan:: We will continue the patient's pregabalin 75 mg 3 times a day. We will provide the patient with 3 months of refills. We would like to see the patient back in 3 months for follow-up and reevaluation of chronic pain syndrome. Patient has been advised of risks of oversedation with the prescribed medication. Narcan has been offered to the patient in the event of oversedation. Patient has been advised that a family member should also be educated regarding administration of Narcan. Patient has been instructed to contact the clinic with any concerns before the next appointment. Dr. Patel has reviewed this note and agrees with this plan of care. This note was dictated using voice recognition software and make contain errors or omissions. [facility] Disclaimer: The information contained in this section may have been updated after the patient was seen, as this information can be updated by other users. Medical History (Updated 03/07/20 @ 16:31 by Chanel Rowe APRN) Depression Hyperlipidemia associated with type 2 diabetes mellitus Hypertension Hypothyroidism Obesity (BMI 30-39.9) Sleep apnea Type II diabetes mellitus Social History Smoking Status: Never smoker alcohol intake: never substance use type: denies use current occupational status: other Travel in the last 8 weeks: None household members: family housing: house current occupational exposures/hazards: No caffeine: Yes
== END ==
PROVIDERS: PCP Family Medicine; Visit Provider Student in an Organized Health Care Education/Training Program
DX: M51.16 Intervertebral disc disorders with radiculopathy, lumbar region (principal); Z85.048 Personal history of other malignant neoplasm of rectum, rectosigmoid junction, and anus
CPT/HCPCS: 99212; G0463

== ENCOUNTER → 2022-11-05 14:15 | Outpatient (POV) | payer BC, SELFPAY ==
--- NOTE | 2022-11-05 15:17 | EXP.PAIN.SOA ---
[facility] Pain Management SOAP Note Subjective:: Patient is a pleasant 62-year-old female who presents today for medication refill and follow-up. We are currently treating the patient for degenerative disc disease of lumbar spine with lumbar radiculopathy symptoms. Today she rates her pain a 10 out of 10. Patient states that she continues to experience significant pain in the middle of her back. Patient does describe this as a constant aching sensation that is worse with increased activity. She does state that it is worsened when she stands frequently. Patient typically only gets about 30 minutes up on her feet before she has to take breaks and rest. Patient does use a heating pad for temporary relief. Patient does have a significant history of rectal cancer and is currently in remission. She does state that she goes every 3 months for additional MRI scans. She does state that she frequently has chronic constipation which she does believe may be worsening her pain symptoms into her back. Patient does take fiber 2 times a day and does occasionally have to take MiraLAX as needed to help with her constipation. Patient does state that her back pain is aggravated by increased activity such as cooking and cleaning. She states that frequently she will feel better 1 day and increase her activity however the next day her pain can be debilitating. Patient does have a [employer] spinal cord stimulator in place. Patient denies any side effects from this device. She does state that it is probably been 1 year since she has had this device reprogrammed. Patient is currently prescribed pregabalin 75 mg 3 times a day. Patient denies any side effects from this medication. Her Hima is [id number]. Its been reviewed and appropriate. Review of Systems: General: No recent weight changes, no fever, no sleep disturbances Respiratory: No cough, no shortness of air, no recurring pulmonary infections Cardiovascular/peripheral vascular: No chest pain, no palpitations, no edema, no shortness of breath Gastrointestinal: No new onset incontinence, normal bowel movements reported Genitourinary: No new onset incontinence Musculoskeletal: Low back pain Psychiatric: [Normal mood/affect] Neurological: [Denies weakness in extremities], [denies balance issues] Objective:: Physical Exam: General: Alert and oriented x3, no acute distress, pleasant and cooperative Lungs: Respirations even and unlabored, symmetrical chest expansion Eyes: PERRL Musculoskeletal: Flexion and extension of lumbar [spine] somewhat guarded secondary to pain, [antalgic gait noted] Neurological: Speech clear, no gross sensory deficit ORT score updated with low risk Assessment:: Degenerative disc disease of lumbar spine with lumbar radiculopathy symptoms Plan:: Patient is experiencing significant pain in her low back with limited range of motion. I have discussed with the patient that I will contact [employer] disability representative to get in touch with her to reprogram her spinal cord stimulator. I will also order the patient a compounding cream during today's visit. I have also discussed with the patient that she may benefit from lumbar epidural steroid injection however at this time she would like to wait. I will refill the patient's pregabalin 75 mg 3 times a day and provide a 3-month supply of this medication. Patient will return to clinic in 3 months for reevaluation of symptoms, medication refill and follow-up. Patient has been instructed to contact the clinic with any concerns before the next appointment. Dr. Patel has reviewed this note and agrees with this plan of care. This note was dictated using voice recognition software and make contain errors or omissions. [facility] Disclaimer: The information contained in this section may have been updated after the patient was seen, as this information can be updated by other users. Medical History (Updated 03/07/20 @ 16:31 by Chanel Rowe APRN) Depression Hyper
[2022-11-05 15:47] VITALS: BP 114/56; PULSE 84; RESP 18; O2SAT 98; BMI 42.2
== END | disposition home or self-care (01) ==
PROVIDERS: PCP Family Medicine; Visit Provider Nurse Practitioner Family
DX: M51.16 Intervertebral disc disorders with radiculopathy, lumbar region (principal)
CPT/HCPCS: 99212; G0463